=== PATIENT | female | born 1950 | race Caucasian/White ===

== ENCOUNTER 2021-09-08 04:40 | Day surgery (SDC) | payer OTHER ==
[2021-09-06 16:01] VITALS: BMI 25.6
[2021-09-08 10:43] VITALS: TEMP 97
[2021-09-08 11:06] VITALS: BP 114/55; PULSE 81
== END 2021-09-08 11:14 | disposition home or self-care (01) ==
LOC: JASU-ENDO 04:40
PROVIDERS: ATTEND Internal Medicine Gastroenterology
PROC: 0DJD8ZZ Inspection of Lower Intestinal Tract, Via Natural or Artificial Opening Endoscopic (ICD-10-PCS; principal; 2021-09-08 10:30)
DX: Z12.11 Encounter for screening for malignant neoplasm of colon (principal); K64.8 Other hemorrhoids; K59.00 Constipation, unspecified; I10 Essential (primary) hypertension